=== PATIENT | female | born 1945 | race Caucasian/White ===

== ENCOUNTER 2021-02-27 05:58 | Emergency (ER) | payer OTHER ==
[~2021-02-27] VITALS: Ht 165.1 cm; Wt 77.1 kg
[2021-02-27 06:35] LABS: BASOPHIL 0.4 % (0-2); EOSINOPHIL 0.1 % (0-7); HCT 45.3 % (37.0-47.0); HGB 15.2 g/dl (12.5-16.0); LYMPHOCYTE 10.1 % (15-48); MCH 30.6 pg (25.0-31.0); MCHC 33.6 g/dL (32.0-36.0); MCV 91.3 fL (78.0-100.0); MONOCYTE 6.7 % (0-12); MPV 10.6 fL (6.0-9.5); NEUTROPHIL 81.9 % (41-80); NRBC 0; PLT 309 K/uL (150-400); RBC 4.96 M/uL (4.20-5.40); RDW 13.2 % (11.5-14.0); WBC 11.9 K/uL (4.0-10.5)
[2021-02-27 06:58] LABS: ALBUMIN 3.9 g/dL (3.4-5.0); BILIRUBIN - TOTAL 0.7 mg/dL (0.2-1.0); BUN/CREAT RATIO (CALC) 28.6 RATIO; CREATININE 0.7 mg/dL (0.51-0.95); POTASSIUM 3.5 mmol/L (3.5-5.1); TOTAL PROTEIN 7.9 g/dL (6.4-8.2)
[2021-02-27 07:47] LABS: BILIRUBIN 1+ mg/dL (NEGATIVE); BLOOD NEGATIVE Ery/uL (NEGATIVE); CLARITY CLEAR (CLEAR); COLOR YELLOW (YELLOW); GLUCOSE (U) NORMAL (NORMAL); LEUKOCYTES NEGATIVE Leu/uL (NEGATIVE); NITRITE NEGATIVE (NEGATIVE); PROTEIN TRACE (LOW) mg/dL (NEGATIVE); SPECIFIC GRAVITY >=1.030 (1.001-1.030); UROBILINOGEN 0.2 mg/dL (0.2-1.0)
[2021-02-27 07:48] LABS: CORONAVIRUS 2019 SARS-COV-2 NEGATIVE (NEGATIVE); INFLUENZA A NAA NEGATIVE (NEGATIVE)
[2021-02-27 07:54] LABS: BACTERIA TRACE; MUCOUS LARGE; SQUAMOUS EPITHELIAL CELLS 20-50; URINARY WBC RARE
[2021-02-27] MEDS ORDERED: ONDANSETRON ODT4 MG SL (08:39)
[2021-02-27] MEDS ORDERED: PEPCID AC20 MG PO (08:39)
== END 2021-02-27 10:48 | disposition home or self-care (01) ==
LOC: FER 05:58
PROVIDERS: Emergency Medicine Emergency Medical Services; Internal Medicine
DX: E86.0 Dehydration (principal); R11.2 Nausea with vomiting, unspecified; E11.9 Type 2 diabetes mellitus without complications; Z88.2 Allergy status to sulfonamides; Z79.84 Long term (current) use of oral hypoglycemic drugs; Z20.822 Contact with and (suspected) exposure to COVID-19
CPT/HCPCS: 36415; 80053; 81001; 83605; 83690; 84145; 84484; 85025; 93005; J1885; J2405; J7030; J7120; U0002